=== PATIENT | female | born 1990 | race Caucasian/White ===

== ENCOUNTER 2020-02-21 09:05 | Outpatient (CLI) | payer OTHER ==
[~2020-02-21] VITALS: Ht 162.6 cm; Wt 79.0 kg
[2020-02-21 09:48] LABS: FERNING TEST FERNING NOT PRESENT (NEGATIVE)
== END 2020-02-21 10:05 | disposition home or self-care (01) ==
LOC: LDOP 09:05
PROVIDERS: ATTEND Obstetrics & Gynecology
DX: O42.92 Full-term premature rupture of membranes, unspecified as to length of time between rupture and onset of labor (principal); Z3A.39 39 weeks gestation of pregnancy
CPT/HCPCS: 59025; 84112; 89060; Q0114

== ENCOUNTER 2020-02-22 00:49 | Inpatient (IN) | payer OTHER ==
[~2020-02-22] VITALS: Ht 152.4 cm; Wt 78.6 kg
[2020-02-22 01:17] VITALS: BP 123/77
[2020-02-22] MEDS ORDERED: OXYTOCIN 30U/ 0.9% NaCL 500ML 500 ML IV ONE (03:33)
[2020-02-22] MEDS ORDERED: OXYTOCIN 30U/ 0.9% NaCL 500ML 500 ML IV PRN (03:33)
[2020-02-22] MEDS ORDERED: D5%-LACTATED RINGERS 1,000 ML IV SCH (03:33)
[2020-02-22] MEDS ORDERED: NEWBORN KIT ONE (03:35)
[2020-02-22] MEDS ORDERED: OXYTOCIN 30U/ 0.9% NaCL 500ML 500 ML ONE (03:35)
[2020-02-22] MEDS ORDERED: FENTANYL PF 100 MCG/2ML ONE (03:39)
[2020-02-22] MEDS: LACTATED RINGERS 1,000 ML IV SCH ×6 (03:51→23:50)
[2020-02-22 03:59] LABS: MEAN CORPUSCULAR HEMOGLOBIN 29.1 pg (27.0-34.8); MEAN CORPUSCULAR HGB CONC 33.1 g/dL (32.4-35.8); MEAN PLATELET VOLUME 9.9 fL (7.4-10.4); PLATELET COUNT 194 x10^3/uL (130-400); RED BLOOD COUNT 4.03 x10^6/uL (3.82-5.3); RED CELL DISTRIBUTION WIDTH 13.3 % (9.6-15.2)
[2020-02-22] MEDS ORDERED: FENTANYL PF 100 MCG/2ML IVPush PRN (04:00)
[2020-02-22] MEDS ORDERED: METOCLOPRAMIDE 5 MG/ML, 2ML IVPush PRN (04:00)
[2020-02-22] MEDS ORDERED: FENTANYL PF 100 MCG/2ML IV PRN (04:00)
[2020-02-22] MEDS ORDERED: TERBUTALINE 1 MG/ML, 1ML SQ PRN (04:00)
[2020-02-22] MEDS ORDERED: ONDANSETRON 2MG/ML, 2ML IVPush PRN (04:00)
[2020-02-22] MEDS ORDERED: TERBUTALINE 1 MG/ML, 1ML IVPush PRN (04:00)
[2020-02-22] MEDS ORDERED: CALCIUM CARBONATE 500 MG TAB.CHEW PO PRN ×2 (04:00→16:00)
[2020-02-22] MEDS ORDERED: SODIUM CITRATE/CITRIC ACID 30 ML UDC PO PRN (04:00)
[2020-02-22 04:16] LABS: MD YES
[2020-02-22 04:22] LABS: BANDS%(MANUAL) 4 % (0-7); LYMPH#(MANUAL) 2.01 x10^3/uL (1-3.4); LYMPHS% (MANUAL) 10 % (22-44); MONOS#(MANUAL) 1.21 x10^3/uL (0.3-2.7); MONOS% (MANUAL) 6 % (2-9); SEG#(MANUAL) 16.08 x10^3/uL (1.8-6.8); SEGS% (MANUAL) 80 % (42-75)
[2020-02-22 04:23] LABS: ANISOCYTOSIS 1+
[2020-02-22 04:24] LABS: <PLATELET ESTIMATE> ADEQUATE; LARGE PLATELETS 1+
[2020-02-22] MEDS ORDERED: FENTANYL/BUPIV./NS/PF 250 ML EPIDCONT ONE (04:35)
[2020-02-22] MEDS ORDERED: BUPIVACAINE 0.25% ONE (04:35)
[2020-02-22] MEDS ORDERED: FENTANYL/BUPIV./NS/PF 250 ML EPIDCONT SCH (04:58)
[2020-02-22] MEDS ORDERED: LACTATED RINGERS 1,000 ML IV SCH (04:58)
[2020-02-22] MEDS ORDERED: EPHEDRINE 50 MG/ML, 1ML IVPush PRN (05:00)
[2020-02-22] MEDS ORDERED: LACTATED RINGERS 1,000 ML IVBOLUS PRN (05:00)
[2020-02-22] MEDS ORDERED: TERBUTALINE 1 MG/ML, 1ML ONE (05:53)
[2020-02-22 07:02] VITALS: BP 118/64
[2020-02-22] MEDS ORDERED: LACTATED RINGERS 1,000 ML INTUTE PRN (09:37)
[2020-02-22] MEDS ORDERED: LACTATED RINGERS 1,000 ML INTUTE SCH (11:30)
[2020-02-22] MEDS ORDERED: DIPHENHYDRAMINE 50 MG/ML, 1ML IVPush ONE (13:30)
[2020-02-22] MEDS ORDERED: DIPHENHYDRAMINE 50 MG/ML, 1ML ONE (13:31)
[2020-02-22] MEDS ORDERED: LIDOCAINE/MPF 2%-EPI 1:200K, 20 ML ONE (14:44)
[2020-02-22] MEDS ORDERED: morphine SULFATE/PF 1 MG/ML, 10ML ONE (14:52)
[2020-02-22] MEDS ORDERED: KETOROLAC 30 MG/1 ML ONE (14:58)
[2020-02-22] MEDS ORDERED: ONDANSETRON 2MG/ML, 2ML ONE (14:58)
[2020-02-22] MEDS ORDERED: OXYTOCIN 10 UNITS/ML, 1ML ONE ×2 (14:58→15:05)
[2020-02-22] MEDS ORDERED: WATER-INJECTION,STERILE 10 ML IV ONE (14:58)
[2020-02-22] MEDS ORDERED: CEFAZOLIN 1,000 MG ONE (14:58)
[2020-02-22] MEDS ORDERED: DEXAMETHASONE 4 MG/ML, 1ML ONE (14:58)
[2020-02-22] MEDS ORDERED: MIDAZOLAM 1 MG/ML, 2ML ONE (15:14)
[2020-02-22] MEDS: KETOROLAC 30 MG/1 ML IV SCH ×2 (15:30→21:36)
[2020-02-22] MEDS ORDERED: MORPHINE SULFATE 4 MG/ML, 1ML IVPush PRN (16:00)
[2020-02-22] MEDS ORDERED: BISACODYL 10 MG SUPP PR PRN (16:00)
[2020-02-22] MEDS ORDERED: MISOPROSTOL 200 MCG TABLET PR PRN (16:00)
[2020-02-22] MEDS ORDERED: morphine SULFATE 10 MG/ML, 1ML IVPush PRN (16:00)
[2020-02-22] MEDS ORDERED: SIMETHICONE 80 MG CHEW TAB PO PRN (16:00)
[2020-02-22] MEDS ORDERED: OXYcodone IR 5MG TABLET PO PRN (16:00)
[2020-02-22] MEDS ORDERED: ONDANSETRON 2MG/ML, 2ML IV PRN (16:00)
[2020-02-22] MEDS ORDERED: OXYcodone 5 MG/5 ML ORAL.SOL UDC ONE (17:20)
[2020-02-22] MEDS: OXYTOCIN 30U/ 0.9% NaCL 500ML 500 ML IV SCH (17:26)
[2020-02-22] MEDS ORDERED: OXYcodone 5 MG/5 ML ORAL.SOL UDC PO ONE (17:30)
[2020-02-22] MEDS: ACETAMINOPHEN 325 MG TABLET PO SCH ×2 (17:30→22:00)
[2020-02-22 18:20] VITALS: BP 121/74
[2020-02-22 19:45] VITALS: BP 105/70
[2020-02-22 19:50] VITALS: BP 118/73
[2020-02-22] MEDS ORDERED: DIPHENHYDRAMINE 50 MG/ML, 1ML IVPush PRN (21:00)
[2020-02-22] MEDS ORDERED: OXYcodone/APAP 5/325MG TABLET PO PRN (21:00)
[2020-02-22 23:45] VITALS: BP 103/71
[2020-02-23] MEDS: OXYTOCIN 30U/ 0.9% NaCL 500ML 500 ML IV SCH ×3 (01:50→21:50)
[2020-02-23] MEDS: LACTATED RINGERS 1,000 ML IV SCH ×6 (01:50→23:50)
[2020-02-23] MEDS: OXYcodone/APAP 5/325MG TABLET PO PRN ×2 (03:32→09:33)
[2020-02-23] MEDS: KETOROLAC 30 MG/1 ML IV SCH ×2 (03:32→09:32)
[2020-02-23 03:40] VITALS: BP 106/68
[2020-02-23] MEDS: ACETAMINOPHEN 325 MG TABLET PO SCH ×2 (04:00→09:25)
[2020-02-23 05:43] LABS: MEAN CORPUSCULAR HEMOGLOBIN 29.1 pg (27.0-34.8); MEAN CORPUSCULAR HGB CONC 33.1 g/dL (32.4-35.8); MEAN CORPUSCULAR VOLUME 88.1 fL (80-100); MEAN PLATELET VOLUME 9.7 fL (7.4-10.4); PLATELET COUNT 154 x10^3/uL (130-400); RED CELL DISTRIBUTION WIDTH 13.4 % (9.6-15.2)
[2020-02-23 06:03] LABS: BASOPHILS # (AUTO) 0.02 x10^3/uL (0-0.1); BASOPHILS % (AUTO) 0 % (0-1); EOSINOPHILS % (AUTO) 0 % (1-7); LYMPHOCYTES # (AUTO) 1.83 x10^3/uL (1-3.4); LYMPHOCYTES % (AUTO) 10 % (22-44); MD SCAN; MONOCYTES # (AUTO) 1.15 x10^3/uL (0.2-0.8); MONOCYTES % (AUTO) 6 % (2-9); NEUTROPHILS # (AUTO) 16.32 x10^3/uL (1.8-6.8); NEUTROPHILS % (AUTO) 85 % (42-75)
[2020-02-23 07:22] VITALS: BP 110/72
[2020-02-23] MEDS: PRENATAL VIT/IRON/FA 1 EACH TABLET PO SCH (07:32)
[2020-02-23] MEDS: DOCUSATE 100 MG CAPSULE PO PRN ×2 (07:32→19:59)
[2020-02-23 12:10] VITALS: BP 99/68
[2020-02-23] MEDS: ACETAMINOPHEN 500 MG TABLET PO SCH ×2 (16:28→22:38)
[2020-02-23] MEDS: IBUPROFEN 600 MG TABLET PO PRN ×2 (16:28→22:38)
[2020-02-23 16:41] VITALS: BP 107/71
[2020-02-23 19:45] VITALS: BP 105/70
[2020-02-23] MEDS: OXYcodone IR 5MG TABLET PO PRN (20:00)
[2020-02-24] MEDS: ACETAMINOPHEN 500 MG TABLET PO SCH ×4 (04:40→22:29)
[2020-02-24] MEDS: IBUPROFEN 600 MG TABLET PO PRN ×4 (04:40→22:29)
[2020-02-24] MEDS: PRENATAL VIT/IRON/FA 1 EACH TABLET PO SCH (07:14)
[2020-02-24] MEDS: DOCUSATE 100 MG CAPSULE PO PRN ×2 (07:14→22:29)
[2020-02-24] MEDS: OXYcodone IR 5MG TABLET PO PRN (07:16)
[2020-02-24 07:24] VITALS: BP 109/73
[2020-02-24] MEDS: OXYTOCIN 30U/ 0.9% NaCL 500ML 500 ML IV SCH ×2 (07:31→16:40)
[2020-02-24] MEDS: LACTATED RINGERS 1,000 ML IV SCH ×5 (07:31→23:50)
[2020-02-24 19:45] VITALS: BP 118/74
[2020-02-25] MEDS: OXYTOCIN 30U/ 0.9% NaCL 500ML 500 ML IV SCH (03:50)
[2020-02-25] MEDS: LACTATED RINGERS 1,000 ML IV SCH (03:50)
[2020-02-25] MEDS: ACETAMINOPHEN 500 MG TABLET PO SCH (05:50)
[2020-02-25] MEDS: IBUPROFEN 600 MG TABLET PO PRN (05:50)
[2020-02-25 07:30] VITALS: BP 116/73
[2020-02-25] MEDS: PRENATAL VIT/IRON/FA 1 EACH TABLET PO SCH (07:32)
[2020-02-25] MEDS: DOCUSATE 100 MG CAPSULE PO PRN (07:32)
[2020-02-25] MEDS ORDERED: DOCU-131 PO (09:25)
[2020-02-25] MEDS ORDERED: IBUP-1223 PO ×2 (09:27→09:37)
[2020-02-25] MEDS ORDERED: OXYC-302 PO (09:29)
[2020-02-25] MEDS ORDERED: IBUP-1222 PO (09:41)
== END 2020-02-25 11:08 | disposition home or self-care (01) | DRG 788 ==
LOC: LDOP 00:49 → LDIP 03:35 → 2NW 18:05
PROVIDERS: ADMIT Obstetrics & Gynecology; ATTEND Obstetrics & Gynecology
PROC: 10D00Z1 Extraction of Products of Conception, Low, Open Approach (ICD-10-PCS; principal; 2020-02-22)
DX: O76 Abnormality in fetal heart rate and rhythm complicating labor and delivery (principal); O69.81X0 Labor and delivery complicated by cord around neck, without compression, not applicable or unspecified; Z37.0 Single live birth; Z3A.40 40 weeks gestation of pregnancy
CPT/HCPCS: 36415; 85025; 86592; 86850; 86900; G0378; J0690; J1100; J1885; J2250; J2274; J2405; J3010; J3490; J1200; J2590; J3105; J7120